=== PATIENT | female | born 1955 | race Caucasian/White ===

== ENCOUNTER → 2020-02-13 | Outpatient (CLI) | payer OTHER ==
[~2020-02-13] MED LIST: IOHEXOL 350 MG/ML 100ML IJ ONE
== END | disposition home or self-care (01) ==
LOC: XYW 10:46
PROVIDERS: ATTEND Specialist
DX: I10 Essential (primary) hypertension (principal); E78.2 Mixed hyperlipidemia; R07.1 Chest pain on breathing; R73.03 Prediabetes; M47.814 Spondylosis without myelopathy or radiculopathy, thoracic region
CPT/HCPCS: 75571; 75574; J7030; Q9967

== ENCOUNTER 2023-06-20 06:21 | Inpatient (IN) | payer OTHER ==
[~2023-06-20] VITALS: Ht 160 cm; Wt 110.0 kg
[~2023-06-20 06:21] MED LIST changes: +CYCL-837 PO; +DULO60CA41 PO; +FAMO-68 PO; +HYDR-4798 PO; +HYDR25TA5 PO; -IOHEXOL 350 MG/ML 100ML IJ ONE; +OLME40TA78 PO; +OMEP20TA PO; +SEMA2INJ3 SC
[2023-06-20] MEDS: TRANEXAMIC ACID 20 ML ONE (06:29)
[2023-06-20] MEDS: ceFAZolin 2 GM/D5W100ml 100 ML IV ONE (06:31)
[2023-06-20] MEDS ORDERED: fentaNYL CITRATE 100 MCG/2 ML VL ONE (07:01)
[2023-06-20] MEDS ORDERED: MIDAZOLAM HCL 2MG/2ML 2ml VIAL (1mg/ml) ONE (07:02)
[2023-06-20] MEDS ORDERED: PROPOFOL 10 MG/ML 20 ML IV ONE ×2 (07:05→09:21)
[2023-06-20] MEDS ORDERED: ePHEDrine SULFATE 50 MG/ML AMP ONE (08:08)
[2023-06-20] MEDS ORDERED: PHENYLEPHRINE HCL 10 MG/ML VL ONE (08:14)
[2023-06-20] MEDS: BUPIVACAINE 0.5% P/F INJ 10 ML VIAL ONE (08:29)
[2023-06-20] MEDS: EPINEPHrine HCL 1 MG/1 ML AMP ONE (08:48)
[2023-06-20] MEDS: VANCOMYCIN HCL 1000 MG VL ONE (08:49)
[2023-06-20] MEDS: ROPIVACAINE 0.5% (5MG/ML) 20ML AMPULE IJ ONE (09:10)
[2023-06-20] MEDS ORDERED: SODIUM CHLORIDE LOCK 10 ML ONE (09:13)
[2023-06-20] MEDS ORDERED: ACETAMINOPHEN 325 MG TAB PO PRN (10:15)
[2023-06-20] MEDS: D5W/LACTATED RINGERS 1,000 ML IV SCH (10:15)
[2023-06-20 10:25] VITALS: PULSE 67; RESP 15; O2SAT 95
[2023-06-20] MEDS ORDERED: ONDANSETRON HCL 4 MG/2 ML VIAL IV PRN (10:30)
[2023-06-20] MEDS: MEPERIDINE HCL (25 MG/ML) 1ML VIAL ONE (11:34)
[2023-06-20] MEDS: MEPERIDINE HCL (25 MG/ML) 1ML VIAL IV PRN (11:45)
[2023-06-20] MEDS: KETOROLAC TROMETH 30 MG/ML 1ML VIAL IV SCH (12:00)
[2023-06-20] MEDS: ACETAMINOPHEN 325 MG TAB PO SCH (12:00)
[2023-06-20] MEDS: oxyCODONE HCL 5MG TAB PO PRN (12:26)
[2023-06-20] MEDS: HYDROmorphone HCL 2 MG/ML VL/or syr IV PRN (12:42)
[2023-06-20] MEDS: ceFAZolin 2 GM/D5W100ml 100 ML IV SCH (14:17)
[2023-06-20 16:36] VITALS: BP 112/79; PULSE 95; RESP 17; TEMP 97.7; O2SAT 98
[2023-06-20 20:00] VITALS: PULSE 91
[2023-06-20 20:12] VITALS: O2SAT 96
[2023-06-20 22:00] VITALS: BP 123/58; PULSE 83; RESP 18; TEMP 98.1; O2SAT 96
[2023-06-20] MEDS: PREGABALIN 25 MG CAP PO SCH (22:28)
[2023-06-20] MEDS: SENNA 8.6 MG TAB PO SCH (22:28)
[2023-06-20] MEDS: ASPirin 81 mg TAB PO SCH (22:28)
[2023-06-21] VITALS (8 sets, daily range): BP systolic 103–158; BP diastolic 44–74; PULSE 76–90; RESP 15–19; TEMP 97.9–98.8; O2SAT 95–99
[2023-06-21 07:15] LABS: Calcium 9.1 mg/dL (8.5-10.1); Chloride 105 mmol/L (98-107); Potassium 4.3 mmol/L (3.5-5.1); Sodium 137 mmol/L (136-145)
[2023-06-21 07:16] LABS: Anion Gap 6 (5-15); Carbon Dioxide 26 mmol/L (20-30)
[2023-06-21 07:18] LABS: Basophils # (auto) 0.1 10 ^3/uL (0-0.2); Basophils % (auto) 0.8 % (0.0-2.0); Eosinophils # (auto) 0.2 10 ^3/uL (0-0.8); Eosinophils % (auto) 2.1 % (0.0-7.0); Hematocrit 32.9 % (36.0-46.0); Hemoglobin 10.7 g/dL (12.2-16.2); Lymphocytes # (auto) 1.6 10 ^3/uL (0.4-5.4); Lymphocytes % (auto) 17.5 % (10.0-50.0); Mean Corpuscular Hemoglobin 28.7 pg (28.0-32.0); Mean Corpuscular Hgb Conc. 32.5 g/dL (32.0-36.0); Mean Corpuscular Volume 88.3 fL (80.0-100.0); Monocytes # (auto) 0.9 10 ^3/uL (0-1.3); Monocytes % (auto) 10.5 % (0.0-12.0); Neutrophils # (auto) 6.1 10 ^3/uL (1.6-8.6); Neutrophils % (auto) 69.1 % (37.0-80.0); Red Blood Cells 3.73 10^6/uL (4.0-5.20); Red Cell Distribution Width 14.5 % (11.8-14.3); White Blood Cell 8.9 10^3/uL (4.4-10.8)
[2023-06-21 07:21] LABS: BUN/Creatinine Ratio 13.7 (10.0-20.0); Blood Urea Nitrogen 17 mg/dL (9-23); Glucose 109 mg/dL (74-106)
[2023-06-21] MEDS: PANTOPRAZOLE 40 MG TAB PO SCH (09:09)
[2023-06-21] MEDS: DULoxetine HCL 30 MG CAP PO SCH (09:09)
[2023-06-21] MEDS: CYCLOBENZAPRINE HCL 10 MG TAB PO SCH (09:09)
[2023-06-21] MEDS: LOSARTAN POTASSIUM 50 MG TAB PO SCH (09:10)
[2023-06-21] MEDS: hydroCHLOROthiazide 25 MG TAB PO SCH (09:10)
[2023-06-21] MEDS ORDERED: FAMOTIDINE 20 MG TAB PO SCH (10:00)
[2023-06-22] MEDS: oxyCODONE HCL 5MG TAB PO PRN (00:41)
[2023-06-22 05:00] VITALS: BP 119/61; PULSE 82; RESP 15; TEMP 97.5; O2SAT 91
[2023-06-22 07:38] VITALS: PULSE 84; RESP 20; O2SAT 93
[2023-06-22 08:16] VITALS: BP 128/89; PULSE 84; RESP 20; TEMP 98.3; O2SAT 93
[2023-06-22 12:39] VITALS: BP 101/48; PULSE 69; RESP 21; TEMP 98.2; O2SAT 93
== END 2023-06-22 16:52 | disposition home or self-care (01) | DRG 470 ==
LOC: SUR 06:21 → TELE 10:11 → TELE-CENTR 17:08 → CENTRAL 06-21 15:50
PROVIDERS: ADMIT Orthopaedic Surgery; ATTEND Internal Medicine
PROC: 0SRD0J9 Replacement of Left Knee Joint with Synthetic Substitute, Cemented, Open Approach (ICD-10-PCS; principal; 2023-06-20 07:45)
DX: M17.12 Unilateral primary osteoarthritis, left knee (principal); Z68.41 Body mass index [BMI] 40.0-44.9, adult; I25.10 Atherosclerotic heart disease of native coronary artery without angina pectoris; E11.9 Type 2 diabetes mellitus without complications; E66.01 Morbid (severe) obesity due to excess calories; M21.162 Varus deformity, not elsewhere classified, left knee; I11.9 Hypertensive heart disease without heart failure; Z82.49 Family history of ischemic heart disease and other diseases of the circulatory system; Z88.2 Allergy status to sulfonamides
CPT/HCPCS: 36415; 73562; 80048; 82962; 85025; 86850; 86900; 86901; 97110; 97116; 97163; G0378; J0171; J1885; J2250; J2704; J3490